=== PATIENT | female | born 1955 | race African-American/Black ===

== ENCOUNTER 2017-05-25 17:16 | Emergency (ER) | payer MEDICARE, MEDICAID | END 2017-05-25 17:38 | disposition left against medical advice (07) | LOC: ERS 17:16 | DX: Z53.21 Procedure and treatment not carried out due to patient leaving prior to being seen by health care provider (principal) ==

== ENCOUNTER 2017-09-05 12:48 | Emergency (ER) | payer MEDICARE, MEDICAID ==
--- NOTE | 2017-09-05 14:07 | RAD ---
TWO VIEWS RIGHT HIP: History: Fall and pain. Comparison: None. FINDINGS: Contour of the femoral head is maintained. Joint space is preserved. No fracture. IMPRESSION: No fracture. POS: ALIREZA
--- NOTE | 2017-09-05 14:08 | RAD ---
LEFT HIP THREE VIEWS: Comparison: None. History: Trauma. FINDINGS: No displaced fracture or malalignment. Mild narrowing of the left hip. Soft tissues are unremarkable. IMPRESSION: No displaced fracture or malalignment. POS: GUCCI
[2017-09-05] MEDS ORDERED: HYDROcodone/Acetaminophen 10/325 mg Tablet ONE (14:38)
== END 2017-09-05 15:04 | disposition home or self-care (01) ==
LOC: ERS 12:48
DX: M25.551 Pain in right hip (principal); E78.5 Hyperlipidemia, unspecified; I10 Essential (primary) hypertension; Z79.899 Other long term (current) drug therapy; Z79.82 Long term (current) use of aspirin; W18.2XXA Fall in (into) shower or empty bathtub, initial encounter

== ENCOUNTER 2018-06-18 12:33 | Outpatient (CLI) | payer MEDICARE, MEDICAID | END 2018-06-18 12:34 | disposition home or self-care (01) | LOC: BICMAMMO 12:33 | PROVIDERS: ATTEND Family Medicine | DX: Z12.31 Encounter for screening mammogram for malignant neoplasm of breast (principal); Z80.3 Family history of malignant neoplasm of breast | CPT/HCPCS: 77063; 77067 ==

== ENCOUNTER 2018-11-29 00:05 | Outpatient (CLI) | payer MEDICARE, MEDICAID ==
[2018-11-29 14:10] LABS: #Basophils 0.1 thou/uL (0.0-0.2); #Eosinphils 0.2 thou/uL (0.0-0.7); #Lymphocytes 3.6 thou/uL (1.20-3.40); #Monocytes 0.7 thou/uL (0.11-0.59); #Neutrophils 3.4 thou/uL (1.40-6.50); %Basophils 0.7 % (0.0-1.0); %Eosinophils 2.8 % (0.0-10.0); %Lymphocytes 45.3 % (21.0-51.0); %Monocytes 8.5 % (0.0-10.0); %Neutrophils 42.6 % (42.0-75.0); Bilirubin Negative (Negative); Blood, Urine Large (Negative); Clarity CLEAR (Clear); Glucose, Urine (Dipstick) Negative (Negative); Hemoglobin 10.9 g/dL (12.0-16.0); Leukocyte Negative (Negative); Mean Corpuscular HGB CONC 31.9 g/dL (32.0-36.0); Mean Corpuscular Hemoglobin 27.6 pg (27.0-31.0); Mean Corpuscular Volume 86.5 fL (78.0-98.0); Mean Platelet Volume 8.3 fL (7.4-10.4); Nitrite Negative (Negative); Platelet Count 244 thou/uL (130-400); Protein, Urine (Dipstick) Negative (Neg-Trace); RBC Distribution Width 11.7 % (11.5-14.5); Red Blood Cell (RBC) Count 3.95 mill/uL (4.20-5.40); Specific Gravity, Urine 1.011 (1.002-1.036); Urobilinogen 0.2 mg/dL (0.2-1.0); White Blood Cell (WBC) Count 7.9 thou/uL (4.8-10.8)
[2018-11-29 14:12] LABS: Bacteria/HPF None Seen HPF (None Seen); Hyaline Casts/LPF 0-3 HYALINE CAST LPF (0-3 Hyaline); RBC/HPF 0-3 HPF (0-3); Squamous Epithelial 0-3 HPF (0-3); WBC/HPF None Seen HPF (0-3)
[2018-11-29 14:16] LABS: Prothrombin Time 13.5 SEC (12.0-14.7)
[2018-11-29 14:31] LABS: Anion Gap 11 mmol/L (10-20); BUN (Urea Nitrogen) 22 mg/dL (9.8-20.1); Calc. Creatinine Clearance 0 mL/min (70-130); Calcium 9.5 mg/dL (7.8-10.44); Carbon Dioxide 30 mmol/L (23-31); Chloride 103 mmol/L (98-107); Estimated GFR-MDRD 56; Glucose 123 mg/dL (80-115); Potassium 3.3 mmol/L (3.5-5.1); Sodium 141 mmol/L (136-145)
== END 2018-11-29 00:06 | disposition home or self-care (01) ==
LOC: LABBT 00:05
PROVIDERS: ATTEND Orthopaedic Surgery
DX: Z01.812 Encounter for preprocedural laboratory examination (principal); M17.11 Unilateral primary osteoarthritis, right knee
CPT/HCPCS: 80048; 81001; 85025; 85610; 87081; 87086

== ENCOUNTER 2018-12-10 05:43 | Inpatient (IN) | payer MEDICARE, MEDICAID ==
[2018-11-29 12:46] VITALS: BMI 34.1
--- NOTE | 2018-12-06 08:17 | HP ---
HISTORY OF PRESENT ILLNESS: The patient is a 63-year-old female with a long history of progressive problems with both knees, right greater than left. She has had no recent injury. She had previous arthroscopy and partial meniscectomy four years ago with initially good results but it has had progressive problems despite rest, restriction of activities, anti-inflammatory medication including Celebrex, cortisone injections, and lifestyle adjustments and use of a walker. The pain is now interfering with day-to-day activities including walking, getting dressed, and sleeping. PAST MEDICAL HISTORY: The patient is otherwise in reasonably good health. She has been seen and cleared for surgery by Dr. Acevedo at [facility]. She has history of hypertension, high cholesterol, and borderline diabetes. She is also hard of hearing. SOCIAL HISTORY: She lives with her and son, who both work. CURRENT MEDICATIONS: Include, 1. Duloxetine. 2. Trazodone. 3. Celebrex. 4. Lyrica. 5. Iron. 6. Carvedilol. 7. Simvastatin. 8. Low-dose aspirin. 9. Citalopram. 10. Losartan. 11. Multivitamins. 12. Alendronate. ALLERGIES: SHE IS ALLERGIC TO PENICILLIN. FAMILY HISTORY: Otherwise unremarkable. SOCIAL HISTORY: Otherwise unremarkable. REVIEW OF SYSTEMS: Otherwise unremarkable. PHYSICAL EXAMINATION: GENERAL: A healthy female who is hard of hearing. HEENT: Unremarkable. NECK: Supple. CHEST: Clear. HEART: Regular rate and rhythm. ABDOMEN: Soft and nontender. PELVIC: Deferred. RECTAL: Deferred. BREAST: Deferred. EXTREMITIES: Pertinent findings related to the right knee. She has puffiness but no definite effusion. There is mild varus. There are healed arthroscopy puncture sites. There is tenderness and crepitus over the medial joint line. Range of motion is 5 to 120 degrees. There is pain with further flexion. There is no instability. NEUROVASCULAR: Intact. Pulses 1+. There is a right antalgic gait with use of a walker. DIAGNOSTIC STUDIES: X-rays of the right knee reveal medial joint space narrowing with minimal joint space remaining with progression from previous x-rays. There are similar changes in the left knee, but not quite this severe. IMPRESSION: 1. Posttraumatic degenerative arthritis, right knee. 2. History of hypertension. 3. History of hearing loss. PLAN: Right total knee replacement. Because of her home situation and her family working, she may require longer than usual hospital stay. The nature of the surgery, length of recovery, and potential complications such as infection, loss of motion, incomplete relief, delayed wound healing, neurovascular injury, thromboembolic phenomena, possible transfusion, need for revision have been discussed in detail. Job ID: [id number]
[2018-12-10] MEDS ORDERED: Levofloxacin 500 mg/D5W 100 ml Premix Bag ONE (06:20)
[2018-12-10] MEDS ORDERED: Tranexamic Acid 1,000 MG/10 ML VIAL ONE ×2 (06:20→09:06)
[2018-12-10] MEDS ORDERED: Lidocaine 1% (PF) 30 ML VIAL ONE (06:24)
[2018-12-10] MEDS ORDERED: Midazolam HCl 2 mg/2 ml Vial ONE ×2 (06:24→07:00)
[2018-12-10] MEDS ORDERED: Ropivacaine 0.2% HCl/PF 20 ML ONE (06:24)
[2018-12-10] MEDS ORDERED: Fentanyl 100 MCG/2 ML VIAL ONE ×5 (06:24→09:53)
[2018-12-10] MEDS ORDERED: Bupivacaine/Epinephrine 0.25% 30 ML VIAL ONE (06:42)
[2018-12-10] MEDS ORDERED: Vancomycin HCl 1.5 GM in Sodium Chloride 0.9% 250 ML 300 ML IVPB ONE (06:45)
[2018-12-10] MEDS ORDERED: Ondansetron PF 4 MG/2 ML Vial IVP PRN ×2 (07:48→10:39)
[2018-12-10] MEDS ORDERED: Promethazine HCl 25 MG/ML VIAL IM PRN ×2 (07:48→09:18)
[2018-12-10] MEDS ORDERED: Zolpidem Tartrate 5 MG TAB PO PRN (07:48)
[2018-12-10] MEDS ORDERED: traMADol HCl 50 MG TAB PO PRN ×2 (07:48→10:39)
[2018-12-10] MEDS ORDERED: HYDROcodone/Acetaminophen 10/325 mg Tablet PO PRN (07:48)
[2018-12-10] MEDS ORDERED: Tranexamic Acid 1,000 MG in Sodium Chloride 0.9% 100 ML IVPB SCH ×2 (09:15→10:39)
[2018-12-10] MEDS ORDERED: Meperidine HCl/PF 25 MG/ML VIAL SLOW IVP PRN (09:18)
[2018-12-10] MEDS ORDERED: Promethazine HCl 25 MG/ML VIAL SLOW IVP PRN ×2 (09:18→10:39)
[2018-12-10] MEDS ORDERED: Ondansetron HCl/PF 4 MG/2 ML Vial IVP PRN (09:18)
--- NOTE | 2018-12-10 10:19 | RAD ---
RIGHT KNEE 2 VIEWS: Date: 12/10/18 HISTORY: Total knee arthroplasty postop. FINDINGS/IMPRESSION: There are recent postop changes of total knee arthroplasty in good position and alignment. Soft tissu e air is present. POS: TPC
--- NOTE | 2018-12-10 10:34 | OP ---
DATE OF PROCEDURE: 12/10/2018 RESIDENTIAL PEST CONTROL TECHNICIAN: Samantha Velazquez PA-C ANESTHESIA: General plus adductor canal and sciatic nerve blocks. PREOPERATIVE DIAGNOSIS: Degenerative arthritis, right knee. POSTOPERATIVE DIAGNOSIS: Degenerative arthritis, right knee. PROCEDURE PERFORMED: Right total knee replacement with computer-assisted navigation with cemented [place] [employer] components (#3 femoral component, #3 primary tibial base plate with 9 mm CS plastic insert, and A29 all plastic patellar component). DESCRIPTION OF PROCEDURE: After satisfactory anesthesia was induced in supine position, sequential compression device was placed on the nonoperative leg throughout the procedure. The right leg was then prepped and draped in routine sterile fashion. The leg was elevated, exsanguinated with an Esmarch bandage and the tourniquet inflated to 300 mmHg. A gently curved medial parapatellar incision was made, carried down through subcutaneous tissues and bleeding points controlled with Bovie cautery. Medial parapatellar arthrotomy was performed. The patella dislocated laterally and portions of the fat-pad were excised for exposure. There was marked degenerative arthritis of the knee, especially medially with the areas of exposed bone. Meniscal remnants and osteophytes were removed. Using the DJZ navigation system and the appropriate guides, the distal femoral and proximal tibial articular surfaces were excised with an oscillating saw to accept the trial components. It was felt that #3 femoral component and #3 tibial base plate with 9 mm CS insert gave appropriate size, fit, and stability. The patellar articular surface was excised to accept an all plastic A29 patellar component. There was good range of motion and good patellar tracking. The trial components were removed. The knee was copiously irrigated with pulsatile lavage and the bony surfaces thoroughly cleaned and dried. The permanent components were then cemented in a single stage using one package of cement premixed with 1 g of tobramycin powder. Excess cement was removed. There was again good fit and stability of the components. The knee was then copiously irrigated. The medial retinaculum was then closed with interrupted #2 Vicryl and a running #2 Quill. Subcutaneous tissues and skin were injected with 30 mL of 0.25% Marcaine with epinephrine. Subcutaneous tissue was closed with a running subcuticular 0 Quill suture and the skin closed with running subcuticular 3-0 Monoderm and SurgiSeal skin adhesive. A sterile bulky compressive dressing was applied. The tourniquet deflated for 75 minutes. The foot promptly pinked up and sequential compression devices were applied to the operated leg. She was awakened and taken to recovery room in stable condition. There were no apparent intraoperative complications. ESTIMATED BLOOD LOSS: Less than 100 mL. Job ID: [id number]
[2018-12-10] MEDS ORDERED: diphenhydrAMINE 25 MG CAP PO PRN (10:39)
[2018-12-10] MEDS ORDERED: Acetaminophen 325 MG TAB PO PRN (10:39)
[2018-12-10] MEDS ORDERED: Fentanyl 100 MCG/2 ML VIAL SLOW IVP PRN (10:39)
[2018-12-10] MEDS ORDERED: Nitroglycerin 0.4 MG TAB (25 Tab Bottle) SL PRN (10:39)
[2018-12-10] MEDS ORDERED: Aspirin 81 mg Enteric Coated Tablet PO SCH (10:45)
[2018-12-10] MEDS: HYDROcodone/Acetaminophen 10/325 mg Tablet PO PRN ×4 (10:59→23:54)
[2018-12-10] MEDS ORDERED: Potassium Chloride 20 MEQ TAB PO SCH (11:00)
[2018-12-10] MEDS ORDERED: Carvedilol 6.25 MG TAB PO SCH (11:00)
[2018-12-10] MEDS ORDERED: Pregabalin 50 MG CAP PO SCH (11:00)
[2018-12-10] MEDS ORDERED: FLUoxetine HCl 20 MG CAP PO SCH (11:00)
[2018-12-10] MEDS ORDERED: Ropivacaine 0.5% HCl/PF (150 MG/30 ML VIAL) ONE (12:16)
[2018-12-10] MEDS ORDERED: Ondansetron PF 4 MG/2 ML Vial ONE (13:17)
[2018-12-10] MEDS ORDERED: Lidocaine 1% PF 5 ML VIAL ONE (13:17)
[2018-12-10] MEDS ORDERED: Dexamethasone 20 MG/5 ML VIAL ONE (13:17)
[2018-12-10] MEDS ORDERED: PROPOFOL 200 MG/20 ML VIAL ONE (13:17)
[2018-12-10] MEDS ORDERED: PHENYLEPHRINE-NS 100 MCG/ML 10 ML SYRINGE ONE (13:17)
[2018-12-10] MEDS ORDERED: BESIFLOXACIN HCL R EYE SCH (15:00)
[2018-12-10] MEDS: Pregabalin 50 MG CAP PO SCH ×2 (15:22→20:13)
[2018-12-10] MEDS: Sodium Chloride 0.9% 1,000 ML IV SCH ×2 (15:26→22:51)
[2018-12-10] MEDS ORDERED: Vancomycin HCl 1.5 GM in Sodium Chloride 0.9% 250 ML 300 ML IVPB SCH (18:00)
[2018-12-10] MEDS: Aspirin 81 mg Enteric Coated Tablet PO SCH (20:11)
[2018-12-10] MEDS: Carvedilol 6.25 MG TAB PO SCH (20:12)
[2018-12-10] MEDS: Simvastatin 20 MG TAB PO SCH (20:14)
--- NOTE | 2018-12-11 01:06 | PDOC.PN ---
- Subjective Encounter Start Date: 12/10/18 Encounter Start Time: 18:00 Subjective: Consultation- -: Patient sitting up eating dinner, reports moderate pain at sx site - Objective Vital Signs & Weight: Vital Signs (12 hours) Temp Pulse Resp BP BP BP Pulse Ox 12/11/18 00:03 99.1 F 96 18 132/82 97 12/10/18 20:12 141/84 H 12/10/18 20:00 98.6 F 80 18 141/84 H 97 12/10/18 17:12 97.6 F 82 18 139/84 12/10/18 13:16 126/68 Weight Weight 92.986 kg I&O: 12/09/18 12/10/18 12/11/18 06:59 06:59 06:59 Intake Total 1300 Balance 1300 Phys Exam - Physical Examination HEENT: PERRLA, moist MMs Neck: no JVD, full ROM Respiratory: clear to auscultation bilateral Cardiovascular: RRR, no significant murmur Gastrointestinal: soft, non-tender right knee surgery, bandaged, Neurological: non-focal, normal sensation Psychiatric: normal affect, A&O x 3 Skin: cap refill <2 seconds Dx/Plan (1) Hypertension Code(s): I10 - ESSENTIAL (PRIMARY) HYPERTENSION Status: Chronic (2) Dyslipidemia Code(s): E78.5 - HYPERLIPIDEMIA, UNSPECIFIED Status: Chronic (3) Arthritis Code(s): M19.90 - UNSPECIFIED OSTEOARTHRITIS, UNSPECIFIED SITE Status: Chronic - Plan cont current plan of care Consulted for medical management -: Will restart home medications, will monitor * . Review of Systems - Review of Systems Musculoskeletal: Leg Pain (right knee surgery) - Medications/Allergies Allergies/Adverse Reactions: Allergies Allergy/AdvReac Type Severity Reaction Status Date / Time Penicillins Allergy RASH, Verified 12/10/18 10:07 ITCHING Medications: Current Medications Acetaminophen (Tylenol) 650 mg PO Q4H PRN PRN Reason: Headache/Fever or Pain Hydrocodone Bitart/Acetaminophen ([place] 10/325) 1 tab PO Q4H PRN PRN Reason: Pain (1-3) Hydrocodone Bitart/Acetaminophen ([place] 10/325) 2 tab PO Q4H PRN PRN Reason: PAIN (4-6) Last Admin: 12/10/18 23:54 Dose: 2 tab Hydrocodone Bitart/Acetaminophen ([place] 10/325) 2 tab PO Q4H PRN PRN Reason: Severe Pain (7-10) Last Admin: 12/10/18 19:32 Dose: 2 tab Aspirin (Ecotrin) 81 mg PO BID [facility] Last Admin: 12/10/18 20:11 Dose: 81 mg Carvedilol (Coreg) 3.125 mg PO BID [facility] Last Admin: 12/10/18 20:12 Dose: 3.125 mg Celecoxib (Celebrex) 200 mg PO QAM [facility] Diphenhydramine HCl (Benadryl) 25 mg PO Q6H PRN PRN Reason: Itching Fentanyl (Sublimaze) 50 mcg SLOW IVP Q1H PRN PRN Reason: Moderate to Severe Pain (6-10) Fentanyl (Sublimaze) 50 mcg SLOW IVP Q30MIN PRN PRN Reason: Moderate Pain (4-6) Fentanyl (Sublimaze) 100 mcg SLOW IVP Q1H PRN PRN Reason: Severe Pain (7-10) Ferrous Gluconate (Fergon) 324 mg PO BID[facility] Fluoxetine HCl (Prozac) 40 mg PO QAM [facility] Furosemide (Lasix) 20 mg PO QAM [facility] Hydrochlorothiazide (Hydrochlorothiazide) 25 mg PO DAILY [facility] Ropivacaine 250 ml/ Device 250 mls @ 10 mls/hr NERVE BLCK INF [facility] Levofloxacin 500 mg/ Device 100 mls @ 100 mls/hr IVPB Q24HR@0600 [facility] Stop: 12/11/18 06:59 Sodium Chloride (Normal Saline 0.9%) 1,000 mls @ 100 mls/hr IV .Q10H [facility] Last Admin: 12/10/18 22:51 Dose: Not Given Iron/Minerals/Multivitamins (Theragran M) 1 tab PO DAILY [facility] Losartan Potassium (Cozaar) 100 mg PO DAILY [facility] Nitroglycerin (Nitrostat) 0.4 mg SL ASDIR PRN PRN Reason: Angina Ondansetron HCl (Zofran) 4 mg IVP Q6H PRN PRN Reason: Nausea/Vomiting Ondansetron HCl (Zofran) 4 mg IVP Q6H PRN PRN Reason: Nausea/Vomiting Pantoprazole Sodium (Protonix) 40 mg PO DAILY PRN PRN Reason: GERD Besifloxacin Hcl [ Besivance Ophth Susp ] 1 Drop 1 each R EYE TID [facility] Potassium Chloride (K-Dur) 20 meq PO DAILY [facility] Pregabalin (Lyrica) 100 mg PO TID [facility] Last Admin: 12/10/18 20:13 Dose: 100 mg Promethazine HCl (Phenergan) 12.5 mg IM Q4H PRN PRN Reason: Nausea Promethazine HCl (Phenergan) 12.5 mg SLOW IVP Q4H PRN PRN Reason: Nausea/Vomiting Senna/Docusate Sodium (Senokot S) 2 tab PO BID [facility] Simvastatin (Zocor) 40 mg PO HS [facility] Last Admin: 12/10/18 20:14 Dose: 40 mg Sodium Chloride (Flush - Normal Saline) 10 ml IVF PRN PRN PRN Reason: Saline Flush Tramadol HCl (Ultram) 50 mg PO Q6H PRN PRN Reason: Mild Pain (1-3) Tramadol HCl (Ultram) 100 mg PO Q6H PRN PRN Reason: Moderate Pain 4-6 Tramadol HCl (Ultram) 100 mg PO Q6H PRN PRN Reason: Moderate Pain (4-6) Zolpidem Tartrate (Ambien) 5 mg PO HSPRN PRN PRN Reason: Insomnia
[2018-12-11] MEDS: HYDROcodone/Acetaminophen 10/325 mg Tablet PO PRN ×5 (05:00→21:37)
[2018-12-11 06:42] LABS: Hemoglobin 9.5 g/dL (12.0-16.0); Mean Corpuscular HGB CONC 32.9 g/dL (32.0-36.0); Mean Corpuscular Hemoglobin 28.4 pg (27.0-31.0); Mean Corpuscular Volume 86.5 fL (78.0-98.0); Mean Platelet Volume 9.3 fL (7.4-10.4); Platelet Count 206 thou/uL (130-400); RBC Distribution Width 11.7 % (11.5-14.5); Red Blood Cell (RBC) Count 3.34 mill/uL (4.20-5.40); White Blood Cell (WBC) Count 14.4 thou/uL (4.8-10.8)
[2018-12-11] MEDS: Sodium Chloride 0.9% 1,000 ML IV SCH ×2 (06:52→16:40)
[2018-12-11] MEDS: Fentanyl 100 MCG/2 ML VIAL SLOW IVP PRN ×2 (08:11→15:15)
[2018-12-11] MEDS: Pregabalin 50 MG CAP PO SCH ×3 (08:18→20:38)
[2018-12-11] MEDS: CeleCOXIB 100 MG CAP PO SCH (08:27)
[2018-12-11] MEDS: Losartan 25 MG TAB PO SCH (08:27)
[2018-12-11] MEDS: Carvedilol 6.25 MG TAB PO SCH ×2 (08:28→20:36)
[2018-12-11] MEDS: Senokot S 8.6-50 MG TAB PO SCH ×2 (08:29→20:35)
[2018-12-11] MEDS: Potassium Chloride 20 MEQ TAB PO SCH ×2 (08:29→08:37)
[2018-12-11] MEDS: Furosemide 20 MG TAB PO SCH (08:30)
[2018-12-11] MEDS: Hydrochlorothiazide 25 MG TAB PO SCH (08:30)
[2018-12-11] MEDS: Ferrous Gluconate 324 MG TAB PO SCH ×2 (08:30→17:47)
[2018-12-11] MEDS: Multivitamin W/ Minerals 1 TAB PO SCH (08:31)
[2018-12-11] MEDS: Aspirin 81 mg Enteric Coated Tablet PO SCH ×2 (08:31→20:36)
[2018-12-11] MEDS: FLUoxetine HCl 20 MG CAP PO SCH (08:31)
--- NOTE | 2018-12-11 08:51 | PRG ---
DATE OF SERVICE: 12/11/2018 SUBJECTIVE: Citlalli is a 63-year-old female, postop day #1 right total knee arthroplasty. She is comfortable and has very little in the way of pain. She does complain of some discomfort in the knee. OBJECTIVE: VITAL SIGNS: Temperature 99.4, pulse 93, respiratory rate 16 and nonlabored, blood pressure 139/82. NEUROLOGIC: She is alert and oriented to person, place, time, and situation, grossly nonfocal, responsive, and appropriate with examiner. LABORATORY DATA: Hemoglobin and hematocrit 9.5 and 20.9. IMPRESSION: 1. A 63-year-old female on postoperative day 1, right total knee arthroplasty, complaining of pain. 2. Mild hemorrhagic anemia. PLAN: 1. We will give little fentanyl and see, if this does not help, also add tramadol. 2. Continue current care. Probable discharge either tomorrow or the following day. Depending on the performance, give consideration and skilled placement. Job ID: [id number]
[2018-12-11] MEDS: traMADol HCl 50 MG TAB PO PRN ×2 (10:42→16:35)
[2018-12-11] MEDS: Ropivacaine HCl/PF 250 ML in Premix Bag 1 BAG NERVE BLCK SCH (10:46)
--- NOTE | 2018-12-11 12:15 | PDOC.PN ---
- Subjective Encounter Start Date: 12/11/18 Encounter Start Time: 08:00 -: old records requested/rev Patient seen and examined. No new complaints. No overnight events - Objective MAR Reviewed: Yes Vital Signs & Weight: Vital Signs (12 hours) Temp Pulse Resp BP BP Pulse Ox 12/11/18 08:28 147/79 H 12/11/18 08:00 96 12/11/18 07:00 99.4 F 83 16 147/79 H 96 12/11/18 04:00 99.4 F 93 16 139/82 95 Weight Weight 205 lb I&O: 12/10/18 12/11/18 12/12/18 06:59 06:59 06:59 Intake Total 1300 1080 Output Total 900 Balance 1300 180 Result Diagrams: 12/11/18 04:59 Phys Exam - Physical Examination Constitutional: NAD HEENT: PERRLA, moist MMs, sclera anicteric Neck: no JVD, supple Respiratory: no wheezing, no rales, no rhonchi Cardiovascular: RRR, no significant murmur, no rub Gastrointestinal: soft, non-tender, no distention, positive bowel sounds Musculoskeletal: no edema, pulses present right knee with dressing, nerve block+ Neurological: non-focal, normal sensation, moves all 4 limbs Lymphatic: no nodes Psychiatric: normal affect, A&O x 3 Skin: no rash, normal turgor Dx/Plan (1) Status post total right knee replacement Code(s): Z96.651 - PRESENCE OF RIGHT ARTIFICIAL KNEE JOINT Status: Acute (2) Anemia, normocytic normochromic Code(s): D64.9 - ANEMIA, UNSPECIFIED Status: Chronic (3) Anxiety and depression Code(s): F41.9 - ANXIETY DISORDER, UNSPECIFIED; F32.9 - MAJOR DEPRESSIVE DISORDER, SINGLE EPISODE, UNSPECIFIED Status: Chronic (4) Dyslipidemia Code(s): E78.5 - HYPERLIPIDEMIA, UNSPECIFIED Status: Chronic (5) GERD (gastroesophageal reflux disease) Code(s): K21.9 - GASTRO-ESOPHAGEAL REFLUX DISEASE WITHOUT ESOPHAGITIS Status: Chronic (6) Hypertension Code(s): I10 - ESSENTIAL (PRIMARY) HYPERTENSION Status: Chronic (7) Obesity (BMI 30.0-34.9) Code(s): E66.9 - OBESITY, UNSPECIFIED Status: Chronic (8) Osteoarthritis Code(s): M19.90 - UNSPECIFIED OSTEOARTHRITIS, UNSPECIFIED SITE Status: Chronic - Plan cont current plan of care, PT/OT * continue aspirin for DVT prophylaxis * nerve block as per anesthesia * PT/OT * pain controlled * code status- full code * continue selected home meds * medication reviewed as below * symptomatic treatment. Review of Systems - Review of Systems ENT: negative: Ear Pain, Ear Discharge, Nose Pain, Nose Discharge, Nose Congestion, Mouth Pain, Mouth Swelling, Throat Pain, Throat Swelling, Other Respiratory: negative: Cough, Dry, Shortness of Breath, Hemoptysis, SOB with Excertion, Pleuritic Pain, Sputum, Wheezing Cardiovascular: negative: chest pain, palpitations, orthopnea, paroxysmal nocturnal dyspnea, edema, light headedness, other Gastrointestinal: negative: Nausea, Vomiting, Abdominal Pain, Diarrhea, Constipation, Melena, Hematochezia, Other Genitourinary: negative: Dysuria, Frequency, Incontinence, Hematuria, Retention , Other Musculoskeletal: negative: Neck Pain, Shoulder Pain, Arm Pain, Back Pain, Hand Pain, Leg Pain, Foot Pain, Other - Medications/Allergies Allergies/Adverse Reactions: Allergies Allergy/AdvReac Type Severity Reaction Status Date / Time Penicillins Allergy RASH, Verified 12/10/18 10:07 ITCHING Medications: Current Medications Acetaminophen (Tylenol) 650 mg PO Q4H PRN PRN Reason: Headache/Fever or Pain Hydrocodone Bitart/Acetaminophen ([place] 10/325) 1 tab PO Q4H PRN PRN Reason: Pain (1-3) Hydrocodone Bitart/Acetaminophen ([place] 10/325) 2 tab PO Q4H PRN PRN Reason: PAIN (4-6) Last Admin: 12/11/18 09:28 Dose: 2 tab Hydrocodone Bitart/Acetaminophen ([place] 10/325) 2 tab PO Q4H PRN PRN Reason: Severe Pain (7-10) Last Admin: 12/10/18 19:32 Dose: 2 tab Aspirin (Ecotrin) 81 mg PO BID [facility] Last Admin: 12/11/18 08:31 Dose: 81 mg Carvedilol (Coreg) 3.125 mg PO BID [facility] Last Admin: 12/11/18 08:28 Dose: 3.125 mg Celecoxib (Celebrex) 200 mg PO [facility] Last Admin: 12/11/18 08:27 Dose: 200 mg Diphenhydramine HCl (Benadryl) 25 mg PO Q6H PRN PRN Reason: Itching Fentanyl (Sublimaze) 50 mcg SLOW IVP Q1H PRN PRN Reason: Moderate to Severe Pain (6-10) Last Admin: 12/11/18 08:11 Dose: 50 mcg Fentanyl (Sublimaze) 50 mcg SLOW IVP Q30MIN PRN PRN Reason: Moderate Pain (4-6) Fentanyl (Sublimaze) 100 mcg SLOW IVP Q1H PRN PRN Reason: Severe Pain (7-10) Ferrous Gluconate (Fergon) 324 mg PO BID[facility] Last Admin: 12/11/18 08:30 Dose: 324 mg Fluoxetine HCl (Prozac) 40 mg PO QAM [facility] Last Admin: 12/11/18 08:31 Dose: Not Given Furosemide (Lasix) 20 mg PO QAM [facility] Last Admin: 12/11/18 08:30 Dose: 20 mg Hydrochlorothiazide (Hydrochlorothiazide) 25 mg PO DAILY [facility] Last Admin: 12/11/18 08:30 Dose: 25 mg Ropivacaine 250 ml/ Device 250 mls @ 10 mls/hr NERVE BLCK INF [facility] Last Admin: 12/11/18 10:46 Dose: 250 mls Sodium Chloride (Normal Saline 0.9%) 1,000 mls @ 100 mls/hr IV .Q10H [facility] Last Admin: 12/11/18 06:52 Dose: Not Given Iron/Minerals/Multivitamins (Theragran M) 1 tab PO DAILY [facility] Last Admin: 12/11/18 08:31 Dose: 1 tab Losartan Potassium (Cozaar) 100 mg PO DAILY [facility] Last Admin: 12/11/18 08:27 Dose: 100 mg Nitroglycerin (Nitrostat) 0.4 mg SL ASDIR PRN PRN Reason: Angina Ondansetron HCl (Zofran) 4 mg IVP Q6H PRN PRN Reason: Nausea/Vomiting Ondansetron HCl (Zofran) 4 mg IVP Q6H PRN PRN Reason: Nausea/Vomiting Pantoprazole Sodium (Protonix) 40 mg PO DAILY PRN PRN Reason: GERD Besifloxacin Hcl [ Besivance Ophth Susp ] 1 Drop 1 each R EYE TID [facility] Potassium Chloride (K-Dur) 20 meq PO DAILY [facility] Last Admin: 12/11/18 08:37 Dose: Not Given Pregabalin (Lyrica) 100 mg PO TID [facility] Last Admin: 12/11/18 08:18 Dose: 100 mg Promethazine HCl (Phenergan) 12.5 mg IM Q4H PRN PRN Reason: Nausea Promethazine HCl (Phenergan) 12.5 mg SLOW IVP Q4H PRN PRN Reason: Nausea/Vomiting Senna/Docusate Sodium (Senokot S) 2 tab PO BID [facility] Last Admin: 12/11/18 08:29 Dose: 2 tab Simvastatin (Zocor) 40 mg PO HS [facility] Last Admin: 12/10/18 20:14 Dose: 40 mg Sodium Chloride (Flush - Normal Saline) 10 ml IVF PRN PRN PRN Reason: Saline Flush Tramadol HCl (Ultram) 50 mg PO Q6H PRN PRN Reason: Mild Pain (1-3) Tramadol HCl (Ultram) 100 mg PO Q6H PRN PRN Reason: Moderate Pain 4-6 Last Admin: 12/11/18 10:42 Dose: 100 mg Tramadol HCl (Ultram) 100 mg PO Q6H PRN PRN Reason: Moderate Pain (4-6) Zolpidem Tartrate (Ambien) 5 mg PO HSPRN PRN PRN Reason: Insomnia
[2018-12-11] MEDS: Simvastatin 20 MG TAB PO SCH (20:39)
[2018-12-12] MEDS: HYDROcodone/Acetaminophen 10/325 mg Tablet PO PRN ×4 (04:36→19:24)
[2018-12-12 05:02] LABS: Hemoglobin 9.1 g/dL (12.0-16.0); Mean Corpuscular HGB CONC 32.2 g/dL (32.0-36.0); Mean Corpuscular Hemoglobin 27.7 pg (27.0-31.0); Mean Platelet Volume 8.5 fL (7.4-10.4); Platelet Count 216 thou/uL (130-400); RBC Distribution Width 11.6 % (11.5-14.5); Red Blood Cell (RBC) Count 3.28 mill/uL (4.20-5.40); White Blood Cell (WBC) Count 15.8 thou/uL (4.8-10.8)
[2018-12-12] MEDS: Sodium Chloride 0.9% 1,000 ML IV SCH ×3 (05:06→20:09)
[2018-12-12] MEDS: Pregabalin 50 MG CAP PO SCH ×3 (09:01→20:03)
[2018-12-12] MEDS: Multivitamin W/ Minerals 1 TAB PO SCH (09:02)
[2018-12-12] MEDS: Hydrochlorothiazide 25 MG TAB PO SCH (09:02)
[2018-12-12] MEDS: Ferrous Gluconate 324 MG TAB PO SCH ×3 (09:02→16:50)
[2018-12-12] MEDS: Senokot S 8.6-50 MG TAB PO SCH ×2 (09:03→20:03)
[2018-12-12] MEDS: Carvedilol 6.25 MG TAB PO SCH ×2 (09:03→20:03)
[2018-12-12] MEDS: Aspirin 81 mg Enteric Coated Tablet PO SCH ×2 (09:03→20:03)
[2018-12-12] MEDS: Potassium Chloride 20 MEQ TAB PO SCH (09:03)
[2018-12-12] MEDS: Losartan 25 MG TAB PO SCH (09:04)
[2018-12-12] MEDS: Furosemide 20 MG TAB PO SCH (09:04)
[2018-12-12] MEDS: CeleCOXIB 100 MG CAP PO SCH (09:04)
[2018-12-12] MEDS: FLUoxetine HCl 20 MG CAP PO SCH (09:05)
[2018-12-12] MEDS: Fentanyl 100 MCG/2 ML VIAL SLOW IVP PRN ×3 (09:55→18:29)
--- NOTE | 2018-12-12 10:24 | PRG ---
DATE OF SERVICE: 12/12/2018 SUBJECTIVE: Citlalli is a 63-year-old white female, postoperative day 2 from right total knee arthroplasty. She is improving slowly and she is ambulating distances greater than 50-60 feet and her pain is relatively well controlled. She has a good solid set family support and I believe home health already arranged for her. OBJECTIVE: VITAL SIGNS: Temperature 99.2, pulse 89, respiratory rate 14 and unlabored, and blood pressure is 139/79. GENERAL: She is alert and oriented to person, place, time, and situation, grossly nonfocal, and responsive to examiner. EXTREMITIES: Visual inspection of the right lower extremity demonstrates her incision to be clean, closed without any erythema. She is neurovascularly intact, but she does have problem with straight leg raise with inhibition of quadriceps and the rectus femoris and hip flexors today. She has not fallen to this point. LABORATORY DATA: Hemoglobin and hematocrit are 9.1 and 28.2. IMPRESSION: 1. A 63-year-old female, postoperative day 2, right total knee arthroplasty. 2. Osteoarthritis. 3. Hyperlipidemia. 4. Hypertension. 5. Glucose intolerance. PLAN: We will re-evaluate the patient later today to decide whether or not we can discharge to home either this afternoon or tomorrow. Job ID: [id number]
[2018-12-12 11:11] LABS: Bilirubin Negative (Negative); Blood, Urine Large (Negative); Clarity CLOUDY (Clear); Glucose, Urine (Dipstick) 100 mg/dL (Negative); Leukocyte Small (Negative); Nitrite Negative (Negative); Protein, Urine (Dipstick) 30 mg/dL (Neg-Trace); Specific Gravity, Urine 1.013 (1.002-1.036); Urobilinogen 0.2 mg/dL (0.2-1.0); pH, Urine 6.5 (5.0-9.0)
[2018-12-12 11:13] LABS: Bacteria/HPF None Seen HPF (None Seen); Hyaline Casts/LPF 4-6 HYALINE CAST LPF (0-3 Hyaline); Pathc Cast-AUWi Flag 1.22 (0-2.49); RBC/HPF GREATER THAN 50-TNTC HPF (0-3)
--- NOTE | 2018-12-12 11:24 | PDOC.PN ---
- Subjective Encounter Start Date: 12/12/18 Encounter Start Time: 08:30 this morning pt has low grade fever and has elevated wbc count, no new problem - Objective MAR Reviewed: Yes Vital Signs & Weight: Vital Signs (12 hours) Temp Pulse Resp BP BP Pulse Ox 12/12/18 09:03 139/79 12/12/18 07:29 99.2 F 89 14 139/76 95 12/12/18 06:41 99.1 F 12/12/18 04:13 100.4 F H 97 14 119/79 94 L 12/12/18 00:02 99.2 F 97 14 129/93 H 94 L Weight Admit Weight 205 lb Weight 205 lb I&O: 12/11/18 12/12/18 12/13/18 06:59 06:59 06:59 Intake Total 1300 2540 Output Total 1800 Balance 1300 740 Result Diagrams: 12/12/18 04:31 Phys Exam - Physical Examination Constitutional: NAD HEENT: PERRLA, moist MMs, sclera anicteric Neck: no JVD, supple Respiratory: no wheezing, no rales, no rhonchi Cardiovascular: RRR, no significant murmur, no rub Gastrointestinal: soft, non-tender, no distention, positive bowel sounds Musculoskeletal: no edema, pulses present Neurological: non-focal, normal sensation, moves all 4 limbs Lymphatic: no nodes Psychiatric: normal affect, A&O x 3 Skin: no rash, normal turgor Dx/Plan (1) Status post total right knee replacement Code(s): Z96.651 - PRESENCE OF RIGHT ARTIFICIAL KNEE JOINT Status: Acute (2) Anemia, normocytic normochromic Code(s): D64.9 - ANEMIA, UNSPECIFIED Status: Chronic (3) Anxiety and depression Code(s): F41.9 - ANXIETY DISORDER, UNSPECIFIED; F32.9 - MAJOR DEPRESSIVE DISORDER, SINGLE EPISODE, UNSPECIFIED Status: Chronic (4) Dyslipidemia Code(s): E78.5 - HYPERLIPIDEMIA, UNSPECIFIED Status: Chronic (5) GERD (gastroesophageal reflux disease) Code(s): K21.9 - GASTRO-ESOPHAGEAL REFLUX DISEASE WITHOUT ESOPHAGITIS Status: Chronic (6) Hypertension Code(s): I10 - ESSENTIAL (PRIMARY) HYPERTENSION Status: Chronic (7) Obesity (BMI 30.0-34.9) Code(s): E66.9 - OBESITY, UNSPECIFIED Status: Chronic (8) Osteoarthritis Code(s): M19.90 - UNSPECIFIED OSTEOARTHRITIS, UNSPECIFIED SITE Status: Chronic (9) UTI (urinary tract infection) Status: Acute - Plan cont current plan of care, continue antibiotics, PT/OT * UA and urine culture sent and found with UTI * will start levaquin * continue JU protocol treatment * DC either to SNU vs home will defer to primary team * medication reviewed as below * symptomatic treatment * pain controlled. Review of Systems - Review of Systems Constitutional: fever ENT: negative: Ear Pain, Ear Discharge, Nose Pain, Nose Discharge, Nose Congestion, Mouth Pain, Mouth Swelling, Throat Pain, Throat Swelling, Other Respiratory: negative: Cough, Dry, Shortness of Breath, Hemoptysis, SOB with Excertion, Pleuritic Pain, Sputum, Wheezing Cardiovascular: negative: chest pain, palpitations, orthopnea, paroxysmal nocturnal dyspnea, edema, light headedness, other Gastrointestinal: negative: Nausea, Vomiting, Abdominal Pain, Diarrhea, Constipation, Melena, Hematochezia, Other Genitourinary: negative: Dysuria, Frequency, Incontinence, Hematuria, Retention , Other Skin: negative: Rash, Lesions, Sean, Bruising, Other - Medications/Allergies Allergies/Adverse Reactions: Allergies Allergy/AdvReac Type Severity Reaction Status Date / Time Penicillins Allergy RASH, Verified 12/10/18 10:07 ITCHING Medications: Current Medications Acetaminophen (Tylenol) 650 mg PO Q4H PRN PRN Reason: Headache/Fever or Pain Hydrocodone Bitart/Acetaminophen ([place] 10/325) 1 tab PO Q4H PRN PRN Reason: Pain (1-3) Hydrocodone Bitart/Acetaminophen ([place] 10/325) 2 tab PO Q4H PRN PRN Reason: PAIN (4-6) Last Admin: 12/12/18 04:36 Dose: 2 tab Hydrocodone Bitart/Acetaminophen ([place] 10/325) 2 tab PO Q4H PRN PRN Reason: Severe Pain (7-10) Last Admin: 12/12/18 09:02 Dose: 2 tab Aspirin (Ecotrin) 81 mg PO BID [facility] Last Admin: 12/12/18 09:03 Dose: 81 mg Carvedilol (Coreg) 3.125 mg PO BID [facility] Last Admin: 12/12/18 09:03 Dose: 3.125 mg Celecoxib (Celebrex) 200 mg PO [facility] Last Admin: 12/12/18 09:04 Dose: 200 mg Diphenhydramine HCl (Benadryl) 25 mg PO Q6H PRN PRN Reason: Itching Fentanyl (Sublimaze) 50 mcg SLOW IVP Q1H PRN PRN Reason: Moderate to Severe Pain (6-10) Last Admin: 12/11/18 15:15 Dose: 50 mcg Fentanyl (Sublimaze) 50 mcg SLOW IVP Q30MIN PRN PRN Reason: Moderate Pain (4-6) Fentanyl (Sublimaze) 100 mcg SLOW IVP Q1H PRN PRN Reason: Severe Pain (7-10) Last Admin: 12/12/18 09:55 Dose: 100 mcg Ferrous Gluconate (Fergon) 324 mg PO BID[facility] Last Admin: 12/12/18 09:10 Dose: Not Given Fluoxetine HCl (Prozac) 40 mg PO [facility] Last Admin: 12/12/18 09:05 Dose: Not Given Furosemide (Lasix) 20 mg PO [facility] Last Admin: 12/12/18 09:04 Dose: 20 mg Hydrochlorothiazide (Hydrochlorothiazide) 25 mg PO DAILY [facility] Last Admin: 12/12/18 09:02 Dose: 25 mg Ropivacaine 250 ml/ Device 250 mls @ 10 mls/hr NERVE BLCK INF [facility] Last Admin: 12/11/18 10:46 Dose: 250 mls Sodium Chloride (Normal Saline 0.9%) 1,000 mls @ 100 mls/hr IV .Q10H [facility] Last Admin: 12/12/18 09:05 Dose: Not Given Levofloxacin 500 mg/ Device 100 mls @ 100 mls/hr IVPB Q24HR [facility] Iron/Minerals/Multivitamins (Theragran M) 1 tab PO DAILY [facility] Last Admin: 12/12/18 09:02 Dose: 1 tab Losartan Potassium (Cozaar) 100 mg PO DAILY [facility] Last Admin: 12/12/18 09:04 Dose: 100 mg Nitroglycerin (Nitrostat) 0.4 mg SL ASDIR PRN PRN Reason: Angina Ondansetron HCl (Zofran) 4 mg IVP Q6H PRN PRN Reason: Nausea/Vomiting Ondansetron HCl (Zofran) 4 mg IVP Q6H PRN PRN Reason: Nausea/Vomiting Pantoprazole Sodium (Protonix) 40 mg PO DAILY PRN PRN Reason: GERD Besifloxacin Hcl [ Besivance Ophth Susp ] 1 Drop 1 each R EYE TID [facility] Potassium Chloride (K-Dur) 20 meq PO DAILY [facility] Last Admin: 12/12/18 09:03 Dose: Not Given Pregabalin (Lyrica) 100 mg PO TID [facility] Last Admin: 12/12/18 09:01 Dose: 100 mg Promethazine HCl (Phenergan) 12.5 mg IM Q4H PRN PRN Reason: Nausea Promethazine HCl (Phenergan) 12.5 mg SLOW IVP Q4H PRN PRN Reason: Nausea/Vomiting Senna/Docusate Sodium (Senokot S) 2 tab PO BID [facility] Last Admin: 12/12/18 09:03 Dose: 2 tab Simvastatin (Zocor) 40 mg PO HS [facility] Last Admin: 12/11/18 20:39 Dose: 40 mg Sodium Chloride (Flush - Normal Saline) 10 ml IVF PRN PRN PRN Reason: Saline Flush Last Admin: 12/11/18 15:16 Dose: 10 ml Tramadol HCl (Ultram) 50 mg PO Q6H PRN PRN Reason: Mild Pain (1-3) Tramadol HCl (Ultram) 100 mg PO Q6H PRN PRN Reason: Moderate Pain 4-6 Last Admin: 12/11/18 16:35 Dose: 100 mg Tramadol HCl (Ultram) 100 mg PO Q6H PRN PRN Reason: Moderate Pain (4-6) Zolpidem Tartrate (Ambien) 5 mg PO HSPRN PRN PRN Reason: Insomnia
[2018-12-12] MEDS: Ropivacaine HCl/PF 250 ML in Premix Bag 1 BAG NERVE BLCK SCH (13:43)
[2018-12-12] MEDS: Simvastatin 20 MG TAB PO SCH (20:03)
[2018-12-12] MEDS: Zolpidem Tartrate 5 MG TAB PO PRN (20:06)
[2018-12-13] MEDS: traMADol HCl 50 MG TAB PO PRN (03:31)
[2018-12-13] MEDS: Fentanyl 100 MCG/2 ML VIAL SLOW IVP PRN ×3 (03:53→18:38)
[2018-12-13] MEDS: HYDROcodone/Acetaminophen 10/325 mg Tablet PO PRN ×4 (04:43→20:03)
[2018-12-13 08:32] LABS: Mean Corpuscular HGB CONC 31.3 g/dL (32.0-36.0); Mean Corpuscular Hemoglobin 27.3 pg (27.0-31.0); Mean Corpuscular Volume 87.4 fL (78.0-98.0); Mean Platelet Volume 8.6 fL (7.4-10.4); Platelet Count 231 thou/uL (130-400); RBC Distribution Width 11.6 % (11.5-14.5); White Blood Cell (WBC) Count 15.8 thou/uL (4.8-10.8)
[2018-12-13 08:44] LABS: Anion Gap 12 mmol/L (10-20); BUN (Urea Nitrogen) 18 mg/dL (9.8-20.1); Calc. Creatinine Clearance 79 mL/min (70-130); Calcium 9.1 mg/dL (7.8-10.44); Carbon Dioxide 27 mmol/L (23-31); Chloride 100 mmol/L (98-107); Estimated GFR-MDRD 62; Glucose 120 mg/dL (80-115); Potassium 3.2 mmol/L (3.5-5.1); Sodium 136 mmol/L (136-145)
[2018-12-13] MEDS: Sodium Chloride 0.9% 1,000 ML IV SCH (09:04)
[2018-12-13] MEDS: Pregabalin 50 MG CAP PO SCH ×3 (09:04→20:00)
[2018-12-13] MEDS: Ferrous Gluconate 324 MG TAB PO SCH ×2 (09:04→16:03)
[2018-12-13] MEDS: Senokot S 8.6-50 MG TAB PO SCH ×2 (09:05→20:01)
[2018-12-13] MEDS: Hydrochlorothiazide 25 MG TAB PO SCH (09:06)
[2018-12-13] MEDS: Losartan 25 MG TAB PO SCH (09:06)
[2018-12-13] MEDS: Multivitamin W/ Minerals 1 TAB PO SCH (09:06)
[2018-12-13] MEDS: Furosemide 20 MG TAB PO SCH (09:06)
[2018-12-13] MEDS: CeleCOXIB 100 MG CAP PO SCH (09:06)
[2018-12-13] MEDS: Carvedilol 6.25 MG TAB PO SCH ×2 (09:07→20:01)
[2018-12-13] MEDS: Aspirin 81 mg Enteric Coated Tablet PO SCH ×2 (09:07→20:01)
[2018-12-13] MEDS: Potassium Chloride 20 MEQ TAB PO SCH (09:07)
[2018-12-13] MEDS: FLUoxetine HCl 20 MG CAP PO SCH (09:07)
--- NOTE | 2018-12-13 09:59 | PDOC.PN ---
- Subjective Encounter Start Date: 12/13/18 Encounter Start Time: 08:00 Patient seen and examined. No new complaints. No overnight events - Objective Resuscitation Status - Order Detail: 12/13/18 07:31 Resuscitation Status Routine Resuscitation Status: FULL: Full Resuscitation MAR Reviewed: Yes Vital Signs & Weight: Vital Signs (12 hours) Temp Pulse Resp BP BP Pulse Ox 12/13/18 09:07 120/82 12/13/18 08:45 98.6 F 104 H 16 113/69 96 12/13/18 04:06 99.8 F H 104 H 16 105/64 93 L 12/13/18 00:51 100.0 F H 111 H 16 115/72 97 Weight Admit Weight 205 lb Weight 205 lb I&O: 12/12/18 12/13/18 12/14/18 06:59 06:59 06:59 Intake Total 2540 1910 Output Total 1800 Balance 740 1910 Result Diagrams: 12/13/18 08:00 12/13/18 08:00 Phys Exam - Physical Examination Constitutional: NAD HEENT: PERRLA, moist MMs, sclera anicteric Neck: no JVD, supple Respiratory: no wheezing, no rales, no rhonchi Cardiovascular: RRR, no significant murmur, no rub Gastrointestinal: soft, non-tender, no distention, positive bowel sounds Musculoskeletal: no edema, pulses present Neurological: non-focal, normal sensation, moves all 4 limbs Lymphatic: no nodes Psychiatric: normal affect, A&O x 3 Skin: no rash, normal turgor Dx/Plan (1) Status post total right knee replacement Code(s): Z96.651 - PRESENCE OF RIGHT ARTIFICIAL KNEE JOINT Status: Acute (2) Anemia, normocytic normochromic Code(s): D64.9 - ANEMIA, UNSPECIFIED Status: Chronic (3) Anxiety and depression Code(s): F41.9 - ANXIETY DISORDER, UNSPECIFIED; F32.9 - MAJOR DEPRESSIVE DISORDER, SINGLE EPISODE, UNSPECIFIED Status: Chronic (4) Dyslipidemia Code(s): E78.5 - HYPERLIPIDEMIA, UNSPECIFIED Status: Chronic (5) GERD (gastroesophageal reflux disease) Code(s): K21.9 - GASTRO-ESOPHAGEAL REFLUX DISEASE WITHOUT ESOPHAGITIS Status: Chronic (6) Hypertension Code(s): I10 - ESSENTIAL (PRIMARY) HYPERTENSION Status: Chronic (7) Obesity (BMI 30.0-34.9) Code(s): E66.9 - OBESITY, UNSPECIFIED Status: Chronic (8) Osteoarthritis Code(s): M19.90 - UNSPECIFIED OSTEOARTHRITIS, UNSPECIFIED SITE Status: Chronic (9) UTI (urinary tract infection) Status: Acute (10) Sepsis Code(s): A41.9 - SEPSIS, UNSPECIFIED ORGANISM Status: Acute (11) Hypokalemia Code(s): E87.6 - HYPOKALEMIA Status: Acute - Plan cont current plan of care, continue antibiotics, PT/OT, administrator social welfare * replace potassium * add rocephin given elevated wbc count and fever * continue levaquin * follow culture * medication reviewed as below * symptomatic treatment. Review of Systems - Review of Systems Constitutional: fever. negative: chills, sweats, weakness, malaise, other Respiratory: negative: Cough, Dry, Shortness of Breath, Hemoptysis, SOB with Excertion, Pleuritic Pain, Sputum, Wheezing Cardiovascular: negative: chest pain, palpitations, orthopnea, paroxysmal nocturnal dyspnea, edema, light headedness, other Gastrointestinal: negative: Nausea, Vomiting, Abdominal Pain, Diarrhea, Constipation, Melena, Hematochezia, Other Genitourinary: negative: Dysuria, Frequency, Incontinence, Hematuria, Retention , Other Musculoskeletal: negative: Neck Pain, Shoulder Pain, Arm Pain, Back Pain, Hand Pain, Leg Pain, Foot Pain, Other Skin: negative: Rash, Lesions, Sean, Bruising, Other - Medications/Allergies Allergies/Adverse Reactions: Allergies Allergy/AdvReac Type Severity Reaction Status Date / Time Penicillins Allergy RASH, Verified 12/10/18 10:07 ITCHING Medications: Current Medications Acetaminophen (Tylenol) 650 mg PO Q4H PRN PRN Reason: Headache/Fever or Pain Last Admin: 12/12/18 23:27 Dose: 650 mg Hydrocodone Bitart/Acetaminophen ([place] 10/325) 1 tab PO Q4H PRN PRN Reason: Pain (1-3) Hydrocodone Bitart/Acetaminophen ([place] 10/325) 2 tab PO Q4H PRN PRN Reason: PAIN (4-6) Last Admin: 12/13/18 04:43 Dose: 2 tab Hydrocodone Bitart/Acetaminophen ([place] 10/325) 2 tab PO Q4H PRN PRN Reason: Severe Pain (7-10) Last Admin: 12/13/18 09:17 Dose: 2 tab Aspirin (Ecotrin) 81 mg PO BID [facility] Last Admin: 12/13/18 09:07 Dose: Not Given Carvedilol (Coreg) 3.125 mg PO BID [facility] Last Admin: 12/13/18 09:07 Dose: 3.125 mg [facility]) [facility] Last Admin: 12/13/18 09:06 Dose: 200 mg Diphenhydramine HCl (Benadryl) 25 mg PO Q6H PRN PRN Reason: Itching Fentanyl (Sublimaze) 50 mcg SLOW IVP Q1H PRN PRN Reason: Moderate to Severe Pain (6-10) Last Admin: 12/11/18 15:15 Dose: 50 mcg Fentanyl (Sublimaze) 50 mcg SLOW IVP Q30MIN PRN PRN Reason: Moderate Pain (4-6) Fentanyl (Sublimaze) 100 mcg SLOW IVP Q1H PRN PRN Reason: Severe Pain (7-10) Last Admin: 12/13/18 03:53 Dose: 100 mcg Ferrous Gluconate (Fergon) 324 mg PO BID-[facility] Last Admin: 12/13/18 09:04 Dose: Not Given Fluoxetine HCl (Prozac) 40 mg PO [facility] Last Admin: 12/13/18 09:07 Dose: Not Given Furosemide (Lasix) 20 mg PO [facility] Last Admin: 12/13/18 09:06 Dose: 20 mg Hydrochlorothiazide (Hydrochlorothiazide) 25 mg PO DAILY [facility] Last Admin: 12/13/18 09:06 Dose: 25 mg Ropivacaine 250 ml/ Device 250 mls @ 10 mls/hr NERVE BLCK INF [facility] Last Admin: 12/12/18 13:43 Dose: 250 mls Levofloxacin 500 mg/ Device 100 mls @ 100 mls/hr IVPB Q24HR [facility] Last Admin: 12/12/18 13:14 Dose: 100 mls Ceftriaxone Sodium 1 gm/ (Sodium Chloride) 100 mls @ 200 mls/hr IVPB Q24HR [facility] Iron/Minerals/Multivitamins (Theragran M) 1 tab PO DAILY [facility] Last Admin: 12/13/18 09:06 Dose: 1 tab Losartan Potassium (Cozaar) 100 mg PO DAILY [facility] Last Admin: 12/13/18 09:06 Dose: 100 mg Nitroglycerin (Nitrostat) 0.4 mg SL ASDIR PRN PRN Reason: Angina Ondansetron HCl (Zofran) 4 mg IVP Q6H PRN PRN Reason: Nausea/Vomiting Ondansetron HCl (Zofran) 4 mg IVP Q6H PRN PRN Reason: Nausea/Vomiting Pantoprazole Sodium (Protonix) 40 mg PO DAILY PRN PRN Reason: GERD Besifloxacin Hcl [ Besivance Ophth Susp ] 1 Drop 1 each R EYE TID [facility] Potassium Chloride (K-Dur) 20 meq PO DAILY [facility] Last Admin: 12/13/18 09:07 Dose: Not Given Pregabalin (Lyrica) 100 mg PO TID [facility] Last Admin: 12/13/18 09:04 Dose: 100 mg Promethazine HCl (Phenergan) 12.5 mg IM Q4H PRN PRN Reason: Nausea Promethazine HCl (Phenergan) 12.5 mg SLOW IVP Q4H PRN PRN Reason: Nausea/Vomiting Senna/Docusate Sodium (Senokot S) 2 tab PO BID [facility] Last Admin: 12/13/18 09:05 Dose: 2 tab Simvastatin (Zocor) 40 mg PO HS [facility] Last Admin: 12/12/18 20:03 Dose: 40 mg Sodium Chloride (Flush - Normal Saline) 10 ml IVF PRN PRN PRN Reason: Saline Flush Last Admin: 12/11/18 15:16 Dose: 10 ml Tramadol HCl (Ultram) 50 mg PO Q6H PRN PRN Reason: Mild Pain (1-3) Tramadol HCl (Ultram) 100 mg PO Q6H PRN PRN Reason: Moderate Pain 4-6 Last Admin: 12/13/18 03:31 Dose: 100 mg Tramadol HCl (Ultram) 100 mg PO Q6H PRN PRN Reason: Moderate Pain (4-6) Zolpidem Tartrate (Ambien) 5 mg PO HSPRN PRN PRN Reason: Insomnia Last Admin: 12/12/18 20:06 Dose: 5 mg
[2018-12-13] MEDS ORDERED: cefTRIAXone\\ROCEPHIN 1 GM in Sodium Chloride 0.9% 100 ML IVPB SCH (11:00)
[2018-12-13 11:12] LABS: Band 2 % (5-11); Eosinophils 2 % (0-10); Hypochromia SLIGHT = 6-15 cells (100X) (0-5/hpf); Lymphocytes 33 % (21-51); MDiff Complete? YES; Monocytes 10 % (0-10); Neutrophil 53 % (42-75); Platelet Morphology Comment Appears Adequate; Polychromasia SLIGHT = 2-3 cells (100X) (0-2/hpf)
[2018-12-13] MEDS: Simvastatin 20 MG TAB PO SCH (20:00)
[2018-12-13] MEDS: Zolpidem Tartrate 5 MG TAB PO PRN (20:03)
[2018-12-14] MEDS: HYDROcodone/Acetaminophen 10/325 mg Tablet PO PRN ×3 (00:51→10:11)
[2018-12-14] MEDS ORDERED: BESIFLOXACIN HCL R EYE SCH (09:00)
[2018-12-14 09:24] LABS: #Basophils 0.1 thou/uL (0.0-0.2); #Eosinphils 0.2 thou/uL (0.0-0.7); #Lymphocytes 4.3 thou/uL (1.20-3.40); #Monocytes 0.8 thou/uL (0.11-0.59); #Neutrophils 6.3 thou/uL (1.40-6.50); %Basophils 0.7 % (0.0-1.0); %Eosinophils 1.7 % (0.0-10.0); %Lymphocytes 36.6 % (21.0-51.0); Hemoglobin 9.4 g/dL (12.0-16.0); Mean Corpuscular HGB CONC 32.4 g/dL (32.0-36.0); Mean Corpuscular Hemoglobin 27.7 pg (27.0-31.0); Mean Corpuscular Volume 85.6 fL (78.0-98.0); Mean Platelet Volume 8.2 fL (7.4-10.4); Platelet Count 249 thou/uL (130-400); RBC Distribution Width 11.5 % (11.5-14.5); Red Blood Cell (RBC) Count 3.39 mill/uL (4.20-5.40); White Blood Cell (WBC) Count 11.7 thou/uL (4.8-10.8)
[2018-12-14 09:47] LABS: Anion Gap 13 mmol/L (10-20); BUN (Urea Nitrogen) 21 mg/dL (9.8-20.1); Calc. Creatinine Clearance 67 mL/min (70-130); Calcium 9.2 mg/dL (7.8-10.44); Carbon Dioxide 30 mmol/L (23-31); Chloride 98 mmol/L (98-107); Estimated GFR-MDRD 52; Glucose 152 mg/dL (80-115); Potassium 3.1 mmol/L (3.5-5.1); Sodium 138 mmol/L (136-145)
[2018-12-14] MEDS: Hydrochlorothiazide 25 MG TAB PO SCH (10:09)
[2018-12-14] MEDS: FLUoxetine HCl 20 MG CAP PO SCH (10:11)
[2018-12-14] MEDS: Senokot S 8.6-50 MG TAB PO SCH (10:13)
[2018-12-14] MEDS: Pregabalin 50 MG CAP PO SCH (10:14)
[2018-12-14] MEDS: Furosemide 20 MG TAB PO SCH (10:14)
[2018-12-14] MEDS: Losartan 25 MG TAB PO SCH (10:16)
[2018-12-14] MEDS: Potassium Chloride 20 MEQ TAB PO SCH (10:16)
[2018-12-14] MEDS: Aspirin 81 mg Enteric Coated Tablet PO SCH (10:16)
[2018-12-14] MEDS: Ferrous Gluconate 324 MG TAB PO SCH (10:18)
[2018-12-14] MEDS: Multivitamin W/ Minerals 1 TAB PO SCH (10:19)
[2018-12-14] MEDS: Carvedilol 6.25 MG TAB PO SCH (10:20)
[2018-12-14] MEDS: CeleCOXIB 100 MG CAP PO SCH (10:21)
[2018-12-14 11:31] VITALS: BP 128/83; TEMP 98.6
--- NOTE | 2018-12-14 12:28 | DIS ---
DATE OF ADMISSION: 12/10/2018 DATE OF DISCHARGE: 12/14/2018 PRIMARY CARE PHYSICIAN: [facility] Call Admission. DISCHARGE DISPOSITION: snf home. PRIMARY DISCHARGE DIAGNOSES: 1. Status post right total knee replacement. 2. Sepsis due to urinary tract infection, treated in the hospital. 3. Hypokalemia, corrected. SECONDARY DISCHARGE DIAGNOSES: 1. Osteoarthritis. 2. Obesity with BMI of 34. 3. Hypertension. 4. Gastroesophageal reflux disease. 5. Dyslipidemia. 6. Anxiety and depression. 7. Normocytic normochromic anemia. PRIMARY PROCEDURE/OPERATION: Right total knee replacement. RADIOLOGICAL INVESTIGATION: Knee x-ray. SIGNIFICANT LABORATORY DATA: Hemoglobin 9.4, WBC 11.7, platelets 249. Sodium 138, potassium 3.1, BUN 21, creatinine 1.27, calcium 9.2. Urinalysis suggestive of UTI. Urine culture negative. DISCHARGE MEDICATIONS: The patient will continue all her previous medications; 1. Besivance ophthalmic drops t.i.d. 2. Coreg 3.125 mg b.i.d. 3. Celebrex 200 mg daily. 4. Dexilant 60 mg daily. 5. Colace 250 mg daily. 6. Ferrous sulfate 325 mg daily. 7. Prozac 40 mg daily. 8. Lasix 20 mg daily. 9. Losartan with hydrochlorothiazide one tablet daily. 10. Potassium chloride 20 mEq p.o. daily. 11. Lyrica 100 mg t.i.d. 12. Zocor 40 mg p.o. at bedtime. 13. Aspirin 81 mg b.i.d. 14. Tylenol on p.r.n. basis. 15. [place] on p.r.n. basis. CONTRAINDICATION: None. CODE STATUS: Full code. INPATIENT CONSULT: Dr. Tony was primary. [facility] Team was consulted for medical comanagement. TEST RESULTS PENDING ON DISCHARGE: None. ALLERGIES: PENICILLIN. DISCHARGE PLAN: Posthospital, the patient will follow up with Dr. Tony on January 01, 2019, at 1:30 p.m. HOSPITAL COURSE: A 63-year-old female, who was admitted by Dr. Weber for elective admission for right total knee replacement, which was done on December 10, 2018. Postoperatively, the patient was evaluated by [facility] Team for medical comanagement. The patient did very well while in hospital. She started getting fever on December 12 and December 13, and we checked her urinalysis, which was consistent with urinary tract infection. She also had leukocytosis and that is why we treated her with Rocephin and Levaquin while in hospital. She also had hypokalemia, which was replaced. She finished 3 days of antibiotic therapy, and her leukocytosis is improving and her culture remained negative and that is why we discontinued antibiotic therapy upon discharge. She will continue all her previous medications as well as aspirin is given for DVT prophylaxis. The patient is seen and examined at bedside today. All review of systems reviewed with her and negative. Plan of care discussed with the family member. PHYSICAL EXAMINATION: VITAL SIGNS: Today, temperature 98.6, pulse 97, respiratory rate 18, blood pressure 128/83, saturation 98% on room air. Weight 205 pounds. GENERAL: The patient is currently alert and oriented x3. HEENT: Head; normocephalic and atraumatic. Eyes; pupils are round and reactive to light. Extraocular muscle intact. ENT, oropharynx within normal limit. Moist mucous membrane. No oral lesion. No pharyngeal erythema. No exudate. NECK: Supple. No JVD. No thyromegaly. No carotid bruit. LUNGS: Clear to auscultation without any rhonchi or rales. CARDIAC: S1 and S2, regular without any murmur. ABDOMEN: Soft and benign without any tenderness. EXTREMITIES: No edema. NEUROLOGIC: Nonfocal examination. Overall, the patient is medically stable for discharge today and we will sign off. Job ID: [id number]
--- NOTE | 2018-12-14 12:45 | PDOC.PN ---
- Subjective Encounter Start Date: 12/14/18 Encounter Start Time: 08:00 Patient seen and examined. No new complaints. No overnight events - Objective Resuscitation Status - Order Detail: 12/13/18 07:31 Resuscitation Status Routine Resuscitation Status: FULL: Full Resuscitation MAR Reviewed: Yes Vital Signs & Weight: Vital Signs (12 hours) Temp Pulse Resp BP BP Pulse Ox 12/14/18 11:02 98.6 F 97 20 128/83 98 12/14/18 10:20 133/82 12/14/18 07:25 98.1 F 100 20 133/82 98 Weight Admit Weight 205 lb Weight 205 lb I&O: 12/13/18 12/14/18 12/15/18 06:59 06:59 06:59 Intake Total 1909 1360 Balance 1909 1360 Result Diagrams: 12/14/18 09:15 12/14/18 09:15 Phys Exam - Physical Examination Constitutional: NAD HEENT: PERRLA, moist MMs, sclera anicteric Neck: no JVD, supple Respiratory: no wheezing, no rales, no rhonchi Cardiovascular: RRR, no significant murmur, no rub Gastrointestinal: soft, non-tender, no distention, positive bowel sounds Musculoskeletal: no edema, pulses present Neurological: non-focal, normal sensation, moves all 4 limbs Psychiatric: normal affect, A&O x 3 Skin: no rash, normal turgor Dx/Plan (1) Status post total right knee replacement Code(s): Z96.651 - PRESENCE OF RIGHT ARTIFICIAL KNEE JOINT Status: Acute (2) Anemia, normocytic normochromic Code(s): D64.9 - ANEMIA, UNSPECIFIED Status: Chronic (3) Anxiety and depression Code(s): F41.9 - ANXIETY DISORDER, UNSPECIFIED; F32.9 - MAJOR DEPRESSIVE DISORDER, SINGLE EPISODE, UNSPECIFIED Status: Chronic (4) Dyslipidemia Code(s): E78.5 - HYPERLIPIDEMIA, UNSPECIFIED Status: Chronic (5) GERD (gastroesophageal reflux disease) Code(s): K21.9 - GASTRO-ESOPHAGEAL REFLUX DISEASE WITHOUT ESOPHAGITIS Status: Chronic (6) Hypertension Code(s): I10 - ESSENTIAL (PRIMARY) HYPERTENSION Status: Chronic (7) Obesity (BMI 30.0-34.9) Code(s): E66.9 - OBESITY, UNSPECIFIED Status: Chronic (8) Osteoarthritis Code(s): M19.90 - UNSPECIFIED OSTEOARTHRITIS, UNSPECIFIED SITE Status: Chronic (9) UTI (urinary tract infection) Status: Acute (10) Sepsis Code(s): A41.9 - SEPSIS, UNSPECIFIED ORGANISM Status: Acute (11) Hypokalemia Code(s): E87.6 - HYPOKALEMIA Status: Acute - Plan cont current plan of care, plan discussed w/ family, PT/OT, social services counselor * medication reviewed as below * symptomatic treatment * see discharge rosemary. Review of Systems - Review of Systems ENT: negative: Ear Pain, Ear Discharge, Nose Pain, Nose Discharge, Nose Congestion, Mouth Pain, Mouth Swelling, Throat Pain, Throat Swelling, Other Respiratory: negative: Cough, Dry, Shortness of Breath, Hemoptysis, SOB with Excertion, Pleuritic Pain, Sputum, Wheezing Cardiovascular: negative: chest pain, palpitations, orthopnea, paroxysmal nocturnal dyspnea, edema, light headedness, other Gastrointestinal: negative: Nausea, Vomiting, Abdominal Pain, Diarrhea, Constipation, Melena, Hematochezia, Other Genitourinary: negative: Dysuria, Frequency, Incontinence, Hematuria, Retention , Other Musculoskeletal: negative: Neck Pain, Shoulder Pain, Arm Pain, Back Pain, Hand Pain, Leg Pain, Foot Pain, Other - Medications/Allergies Allergies/Adverse Reactions: Allergies Allergy/AdvReac Type Severity Reaction Status Date / Time Penicillins Allergy RASH, Verified 12/10/18 10:07 ITCHING Medications: Current Medications Acetaminophen (Tylenol) 650 mg PO Q4H PRN PRN Reason: Headache/Fever or Pain Last Admin: 12/12/18 23:27 Dose: 650 mg Hydrocodone Bitart/Acetaminophen (Oliver 10/325) 1 tab PO Q4H PRN PRN Reason: Pain (1-3) Hydrocodone Bitart/Acetaminophen (Oliver 10/325) 2 tab PO Q4H PRN PRN Reason: Severe Pain (7-10) Last Admin: 12/14/18 10:11 Dose: 2 tab Aspirin (Ecotrin) 81 mg PO BID [facility] Last Admin: 12/14/18 10:16 Dose: 81 mg Carvedilol (Coreg) 3.125 mg PO BID [facility] Last Admin: 12/14/18 10:20 Dose: 3.125 mg Celecoxib ([facility]elebrex) [facility] [place] Last Admin: 12/14/18 10:21 Dose: 200 mg Diphenhydramine HCl (Benadryl) 25 mg PO Q6H PRN PRN Reason: Itching Fentanyl (Sublimaze) 50 mcg SLOW IVP Q1H PRN PRN Reason: Moderate to Severe Pain (6-10) Last Admin: 12/13/18 18:38 Dose: 50 mcg Fentanyl (Sublimaze) 50 mcg SLOW IVP Q30MIN PRN PRN Reason: Moderate Pain (4-6) Fentanyl (Sublimaze) 100 mcg SLOW IVP Q1H PRN PRN Reason: Severe Pain (7-10) Last Admin: 12/13/18 12:08 Dose: 100 mcg Ferrous Gluconate (Fergon) 324 mg PO BID[facility] Last Admin: 12/14/18 10:18 Dose: 324 mg Fluoxetine HCl (Prozac) 40 mg PO [facility] Last Admin: 12/14/18 10:11 Dose: Not Given Furosemide (Lasix) 20 mg PO [facility] Last Admin: 12/14/18 10:14 Dose: 20 mg Hydrochlorothiazide (Hydrochlorothiazide) 25 mg PO DAILY [facility] Last Admin: 12/14/18 10:09 Dose: 25 mg Ropivacaine 250 ml/ Device 250 mls @ 10 mls/hr [facility] Last Admin: 12/12/18 13:43 Dose: 250 mls Iron/Minerals/Multivitamins (Theragran M) 1 tab PO DAILY [facility] Last Admin: 12/14/18 10:19 Dose: 1 tab Losartan Potassium (Cozaar) 100 mg PO DAILY [facility] Last Admin: 12/14/18 10:16 Dose: 100 mg Nitroglycerin (Nitrostat) 0.4 mg SL ASDIR PRN PRN Reason: Angina Ondansetron HCl (Zofran) 4 mg IVP Q6H PRN PRN Reason: Nausea/Vomiting Pantoprazole Sodium (Protonix) 40 mg PO DAILY PRN PRN Reason: GERD Besifloxacin Hcl [ Besivance Ophth Susp ] 1 Drop 1 each R E[facility] TID [facility] Last Admin: 12/14/18 10:21 Dose: 1 each Potassium Chloride (K-Dur) 20 meq PO DAILY [facility] Last Admin: 12/14/18 10:16 Dose: 20 meq Pregabalin (Lyrica) 100 mg PO TID [facility] Last Admin: 12/14/18 10:14 Dose: 100 mg Promethazine HCl (Phenergan) 12.5 mg IM Q4H PRN PRN Reason: Nausea Promethazine HCl (Phenergan) 12.5 mg SLOW IVP Q4H PRN PRN Reason: Nausea/Vomiting Senna/Docusate Sodium (Senokot S) 2 tab PO BID [facility] Last Admin: 12/14/18 10:13 Dose: 2 tab Simvastatin (Zocor) 40 mg PO HS [facility] Last Admin: 12/13/18 20:00 Dose: 40 mg Sodium Chloride (Flush - Normal Saline) 10 ml IVF PRN PRN PRN Reason: Saline Flush Last Admin: 12/11/18 15:16 Dose: 10 ml Tramadol HCl (Ultram) 50 mg PO Q6H PRN PRN Reason: Mild Pain (1-3) Tramadol HCl (Ultram) 100 mg PO Q6H PRN PRN Reason: Moderate Pain (4-6) Last Admin: 12/13/18 17:14 Dose: 100 mg Zolpidem Tartrate (Ambien) 5 mg PO HSPRN PRN PRN Reason: Insomnia Last Admin: 12/13/18 20:03 Dose: 5 mg
== END 2018-12-14 13:45 | DRG 469 ==
LOC: SDC 05:43 → SJJU 10:12
PROVIDERS: ADMIT Orthopaedic Surgery; ATTEND Orthopaedic Surgery
PROC: 0SRC0J9 Replacement of Right Knee Joint with Synthetic Substitute, Cemented, Open Approach (ICD-10-PCS; principal; 2018-12-10)
PROC: 8E0YXBZ Computer Assisted Procedure of Lower Extremity (ICD-10-PCS; 2018-12-10)
DX: M17.31 Unilateral post-traumatic osteoarthritis, right knee (principal); A41.9 Sepsis, unspecified organism; N39.0 Urinary tract infection, site not specified; I10 Essential (primary) hypertension; E78.5 Hyperlipidemia, unspecified; H91.90 Unspecified hearing loss, unspecified ear; F41.9 Anxiety disorder, unspecified; K21.9 Gastro-esophageal reflux disease without esophagitis; E66.9 Obesity, unspecified; F32.9 Major depressive disorder, single episode, unspecified; D64.9 Anemia, unspecified; E87.6 Hypokalemia; Z79.899 Other long term (current) drug therapy; Z88.0 Allergy status to penicillin; Z98.890 Other specified postprocedural states; Z79.82 Long term (current) use of aspirin; Z68.34 Body mass index [BMI] 34.0-34.9, adult
CPT/HCPCS: 36415; 80048; 81001; 85025; 85027; 86850; 86900; 86901; 87086; C1713; C1776; J0696; J1100; J1956; J2001; J2250; J2405; J2704; J2795; J3010; J3370; J3490; J7050

== ENCOUNTER 2019-05-07 10:13 | Outpatient (CLI) | payer MEDICARE, OTHER ==
--- NOTE | 2019-05-07 11:24 | MMO ---
Bilateral MAMMO Bilat Diag [facility]. CLINICAL HISTORY: Patient is 63 years old and is seen for diagnostic exam and pain in the left breast in the upper-outer region and in the axilla region. The patient has the following family history of breast cancer: sister, malignant (generic). The patient has no personal history of cancer. VIEWS: The views performed were: bilateral craniocaudal with tomosynthesis; bilateral mediolateral oblique with tomosynthesis; and bilateral mediolateral with tomosynthesis. FILMS COMPARED: The present examination has been compared to prior imaging studies performed at [facility] on 04/22/2016, 05/10/2017, 06/18/2018 and 05/07/2019. This study has been interpreted with the assistance of computer-aided detection. MAMMOGRAM FINDINGS: There are scattered fibroglandular densities. Patient has focal pain in upper outer left breast. No mass or architectural distortion is seen. Ultrasound shows a cluster of cysts at 2:00 position. There are no suspicious masses, suspicious calcifications, or new areas of architectural distortion. IMPRESSION: THERE IS NO MAMMOGRAPHIC EVIDENCE OF MALIGNANCY. PATIENT'S PAIN SHOULD BE FURTHER MANAGED CLINICALLY. A ROUTINE FOLLOW-UP MAMMOGRAM IN 1 YEAR IS RECOMMENDED. THE RESULTS OF THIS EXAM WERE SENT TO THE PATIENT. ACR BI-RADS Category 2 - Benign finding MAMMOGRAPHY NOTE: 1. A negative mammogram report should not delay a biopsy if a dominant of clinically suspicious mass is present. 2. Approximately 10% to 15% of breast cancers are not detected by mammography. 3. Adenosis and dense breasts may obscure an underlying neoplasm. Reported by: FIONA VARGAS MD Electonically Signed: [id number]
--- NOTE | 2019-05-07 11:56 | ULT ---
LIMITED LEFT BREAST ULTRASOUND: Date: 05/07/19 HISTORY: Pain in upper outer quadrant of left breast. FINDINGS: Limited sonographic evaluation of the left breast was performed at the 1 and 2 o'clock positions, whi ch is in region of patient's reported area of pain. Images demonstrate a cluster of small hypoechoic structures with the cluster overall measuring 6.0 mm x 4.0 mm. Findings are likely related to a clust er of small cysts. No additional mass or cystic lesion is identified. IMPRESSION: 1. BIRADS Category 2 - Benign findings. Annual mammographic screening is recommended. 2. Sonographic findings most suggestive of a cluster of small cysts in the left breast 2 o'clock pos ition. 3. Patient's focal area of pain should be further managed clinically. POS: OFF
== END 2019-05-07 10:14 | disposition home or self-care (01) ==
LOC: BICMAMMO 10:13
PROVIDERS: ATTEND Family Medicine
DX: N64.4 Mastodynia (principal)
CPT/HCPCS: 76642; 77066; G0279

== ENCOUNTER 2020-06-26 14:53 | Outpatient (CLI) | payer MEDICARE, MEDICAID ==
--- NOTE | 2020-06-26 15:23 | MMO ---
Bilateral MAMMO Bilat Screen [facility]. CLINICAL HISTORY: Patient is 65 years old and is seen for screening. The patient has the following family history of breast cancer: sister, malignant (generic). The patient has no personal history of cancer. VIEWS: The views performed were: bilateral craniocaudal with tomosynthesis and bilateral mediolateral oblique with tomosynthesis. FILMS COMPARED: The present examination has been compared to prior imaging studies performed at [facility] on 05/10/2017, 06/18/2018 and 05/07/2019. This study has been interpreted with the assistance of computer-aided detection. MAMMOGRAM FINDINGS: There are scattered fibroglandular densities. There are no suspicious masses, suspicious calcifications, or new areas of architectural distortion. IMPRESSION: THERE IS NO MAMMOGRAPHIC EVIDENCE OF MALIGNANCY. A ROUTINE FOLLOW-UP MAMMOGRAM IN 1 YEAR IS RECOMMENDED. THE RESULTS OF THIS EXAM WERE SENT TO THE PATIENT. ACR BI-RADS Category 1 - Negative MAMMOGRAPHY NOTE: 1. A negative mammogram report should not delay a biopsy if a dominant of clinically suspicious mass is present. 2. Approximately 10% to 15% of breast cancers are not detected by mammography. 3. Adenosis and dense breasts may obscure an underlying neoplasm. Reported by: ZACH ROTH MD Electonically Signed: [id number]
== END 2020-06-26 14:54 | disposition home or self-care (01) ==
LOC: BICMAMMO 14:53
PROVIDERS: ATTEND Family Medicine
DX: Z12.31 Encounter for screening mammogram for malignant neoplasm of breast (principal); Z80.3 Family history of malignant neoplasm of breast
CPT/HCPCS: 77063; 77067

== ENCOUNTER 2022-05-25 13:00 | Outpatient (CLI) | payer MEDICARE, MEDICAID | END 2022-05-25 13:01 | disposition home or self-care (01) | LOC: BICMAMMO 13:00 | PROVIDERS: ATTEND Family Medicine | DX: Z12.31 Encounter for screening mammogram for malignant neoplasm of breast (principal); Z80.3 Family history of malignant neoplasm of breast | CPT/HCPCS: 77063; 77067 ==

== ENCOUNTER 2022-11-14 11:54 | Day surgery (SDC) | payer MEDICARE, MEDICAID ==
[2022-11-11 12:17] VITALS: BMI 39.4
[2022-11-14] MEDS ORDERED: fentaNYL 50 mcg/mL 1 mL Vial ONE ×2 (13:14→14:29)
[2022-11-14] MEDS ORDERED: PROPOFOL 200 MG/20 ML VIAL ONE (13:30)
[2022-11-14] MEDS ORDERED: PHENYLEPHRINE-NS 100 MCG/ML 10 ML SYRINGE ONE (13:30)
[2022-11-14] MEDS ORDERED: Lidocaine 1% PF 5 ML VIAL ONE (13:30)
== END 2022-11-14 15:20 | disposition home or self-care (01) ==
LOC: SDC/OP 11:54
PROVIDERS: ATTEND Physical Medicine & Rehabilitation
DX: M50.11 Cervical disc disorder with radiculopathy, high cervical region (principal); M47.22 Other spondylosis with radiculopathy, cervical region; M48.02 Spinal stenosis, cervical region; M50.121 Cervical disc disorder at C4-C5 level with radiculopathy; M50.122 Cervical disc disorder at C5-C6 level with radiculopathy; M50.33 Other cervical disc degeneration, cervicothoracic region; M48.03 Spinal stenosis, cervicothoracic region; I10 Essential (primary) hypertension; E78.5 Hyperlipidemia, unspecified; M19.90 Unspecified osteoarthritis, unspecified site; I25.10 Atherosclerotic heart disease of native coronary artery without angina pectoris; Z79.82 Long term (current) use of aspirin; Z79.899 Other long term (current) drug therapy; Z88.0 Allergy status to penicillin
CPT/HCPCS: 72141; J3010

== ENCOUNTER 2025-07-04 20:58 | Emergency (ER) | payer MEDICARE, OTHER ==
[2025-07-05] MEDS ORDERED: Dexamethasone 4 MG TAB ONE (00:19)
[2025-07-05] MEDS ORDERED: Acetaminophen 500 MG TAB ONE (00:19)
== END 2025-07-05 00:46 | disposition home or self-care (01) ==
LOC: ERS 20:58
DX: M54.32 Sciatica, left side (principal); I10 Essential (primary) hypertension
CPT/HCPCS: 73502; 96372; 99283; J2270; J8540